=== PATIENT | male | born 1965 | race Caucasian/White ===

== ENCOUNTER 2019-11-01 17:13 | Emergency (ER) | payer OTHER ==
[~2019-11-01] VITALS: Ht 177 cm; Wt 63.0 kg
[~2019-11-01 17:13] MED LIST: IBUP-15 PO
[2019-11-01 17:15] VITALS: BP 150/96
--- NOTE | 2019-11-01 17:32 | ED EENT ---
History of Present Illness General Chief Complaint: Foreign Body Stated Complaint: POSS SPIDER IN R EAR Source: patient Exam Limitations: no limitations History of Present Illness Date Seen by Provider: Nov 01, 2019 Time Seen by Provider: 17:15 Initial Comments Patient resents ER by private conveyance with chief complaint about 1520 minutes prior to arrival he was cleaning out an old she had knee felt a spider or some small bug crawled in his right ear. He flushed it out with water. He says he feels a sensation still once in a while of movement in there. He was using his finger today get it. He has used Q-tips in the past but none today. No discharge from the ear no bleeding. Allergies and Home Medications Allergies Coded Allergies: No Known Drug Allergies (Unverified , 04/01/13) Home Medications Ibuprofen 200 Mg Tablet, 600 MG PO Q6H PRN for PAUL, (Reported) Patient Home Medication List Home Medication List Reviewed: Yes Review of Systems Review of Systems Constitutional: No chills, No diaphoresis Eyes: Denies Blindness, Denies Drainage Ears: See HPI; Denies Dizziness, Denies Pain Nose: denies clots, denies congestion Mouth: denies clots, denies loose teeth Respiratory: No cough, No short of breath All Other Systems Reviewed Negative Unless Noted: Yes Past Ghpyivg-Ihibkq-Azvfyl Hx Patient Social History Alcohol Use: Denies Use Recreational Drug Use: No Smoking Status: Never a Smoker Recent Foreign Travel: No Contact w/Someone Who Travel: No Past Medical History Reproductive Disorders: No Physical Exam Height, Weight, BMI Height: '" Weight: 230lbs. oz. [id number]; BMI Method: General Appearance: WD/WN, no apparent distress Eyes: bilateral eye normal inspection, bilateral eye PERRL, bilateral eye EOMI Ears: right ear erythema, right ear tenderness (canal with a small area of erythema and abrasion just at the 5:00 position of the tympanic membrane along the canal but not involving the TM.); left ear canal normal; bilateral ear auricle normal, bilateral ear TM dull (mild retractions without erythema, inject ion or perforation.) Nose: normal inspection; No active bleeding, No discharge Mouth/Throat: normal mouth inspection, pharynx normal; No dental tenderness Cardiovascular: normal peripheral pulses, regular rate, rhythm Respiratory: no respiratory distress, no accessory muscle use Neurologic/Psychiatric: alert, normal mood/affect, oriented x 3 Progress/Results/Core Measures Progress Progress Note : Time: 17:20 Progress Note Not sure if he had an insect or foreign body of some sort in his ear are not but there does not appear to be anything now. There is a small amount of minor josiah sharron/trauma along the 5:00 position of the canal just at the base of the tympanic membrane which could've been caused by an insect. Doubtful he would've got his index finger that deep into his ear canal. Plan to put him on antibiotic drops to prevent soft tissue infection. We'll encourage him to use antihistamines for the sensation of itching/movement. He does have some serous otitis media mild. Departure Impression Primary Impression: Foreign body in ear Qualified Codes: T16.1XXA - Foreign body in right ear, initial encounter Additional Impression: Abrasion of right ear canal Qualified Codes: S00.411A - Abrasion of right ear, initial encounter Disposition: HOME, SELF-CARE Condition: Stable Departure-Patient Inst. Decision time for Depature: 17:30 Referrals: CIARRA BERNARDO DO (PCP) Primary Care Physician GARRET JAMES APRN (Family) Primary Care Physician Patient Instructions: Removing Objects Stuck in the Ear Add. Discharge Instructions: Zyrtec/cetirizine or Claritin/loratadine 10 mg daily to reduce the sensation of movement and itching sensation in your ear. Ciprodex 4 drops in the affected ear twice a day for the next week to prevent infection. If you have worsening pain discharge fever or other worrisome symptoms then please return to the doctor. Tylenol 1000 mg every 8 hours as necessary for pain. Ibuprofen 800 mg every 8 hours as necessary for pain. All discharge instructions reviewed with patient and/or family. Voiced understanding. Scripts Ciprofloxacin HCl/Dexameth (Ciprodex Otic Suspension) 7.5 Ml Soln 4 DROPS OT BID for 7 Days, #7.5 EA 0 Refills Prov: CIERA METZGER 11/01/19 CIERA METZGER Nov 01, 2019 17:31
--- OUTSIDE RECORDS SUMMARY | 2019-11-01 17:32 | XMS REPORT ---
Author Author [facility] [employer] [facility] Address [address] [place] [address] Care Team Providers Care [facility] Representative Name Role Phone Unavailable Unavailable Allergies No Information Medications No Information Problems Problem Normalized Date Last Normalized Normalized Provider Fa cility Classification Problem(s) Recorded Problem Problem Sta tus Duration Nonspecific Chest pain, Episodic Active BASHAR FLORI , Not Available chest pain (1 unspecified MD (86548) source.) NEGATED Family history Episodic Active BASHAR FLORI , No t Available no of ischemic MD (83285) information (2 heart disease sources.) and other diseases of the circulatory system Translations: [ FAMILY HX-GI MALIGNANCY] Hemorrhoids (1 Internal Episodic Active TAKAAKI KIDO , Not Available source.) hemorrhoids (36168) without mention of complication Translations: [ EXT HEMORRHOID W/O COMPL] Other Obesity, Chronic Active BASHAR FLORI , Not Avai lable nutritional; unspecified MD (32546) endocrine; and metabolic disorders (1 source.) Other lower Shortness of Episodic Active BASHAR FLORI , No t Available respiratory breath (80021) disease (1 source.) Procedures No Information Immunizations No Information Results No Information Vital Signs No Information Interventions No Information Plan of Treatment No Information Goals No Information Social History No Information Functional Status No Information Mental Status No Information Encounters Encounter Normalized Encounter Encounter Diagnosis Care Provi primo Organization Date Type 12-28-2015 Patient encounter no information no name no or ganization name 04-01-2013 Patient encounter no information no name no or ganization name - 04-01-2013 Medical Equipment No Information Payers No Information Additional Source Comments This clinical document has been generated using [employer] software that has been certified by the Office of the National Coordinator for Health Information Technology (ONC 15.99.04.3023.Diam.[id number]) and the National Committee for Social Service Worker (NCQA, as an eMeasure certified technology). FOR RECORDS PERTAINING TO PATIENTS WHO ARE OR HAVE BEEN ENROLLED IN A CHEMICAL D EPENDENCY/SUBSTANCE ABUSE PROGRAM, SOME INFORMATION MAY BE OMITTED. This clinica l summary was aggregated from multiple sources. Caution should be exercised in using it in the provision of clinical care. This summary normalizes information from multiple sources, and as a consequence, information in this document may ma terially change the coding, format and clinical context of patient data. In heath tion, data may be omitted in some cases. CLINICAL DECISIONS SHOULD BE BASED ON T HE PRIMARY CLINICAL RECORDS. [facility]. provides no warranty or guara ntee of the accuracy or completeness of information in this document.The followi information is based on time limited clinical information
--- OUTSIDE RECORDS SUMMARY | 2019-11-01 17:32 | XMS REPORT | Continuity of Care Document ---
Author Organization Unknown Address Unknown Phone Unavailable Allergies Active Description Code Type Severity Reaction Onset Reported/Identified Relationship to Patient Clinical Status Yes No Known Drug Allergies [id number] Drug Allergy Unknown N/A 04/01/2013 Medications There is no data. Problems Date Dx Coded Attending Type Code Diagnosis Diagnosed By 04/01/2013 LENORE AREVALO MD Ot 455.0 INT HEMORRHOID W/O COMPL 04/01/2013 LENORE AREVALO MD Ot 455.3 EXT HEMORRHOID W/O COMPL 04/01/2013 LENORE AREVALO MD Ot V16.0 FAMILY HX-GI MALIGNANCY 12/29/2015 RADHA RUBY MD Ot E66. 9 OBESITY, UNSPECIFIED 12/29/2015 RADHA RUBY MD Ot R06. 02 SHORTNESS OF BREATH 12/29/2015 RADHA RUBY MD Ot R07. 9 CHEST PAIN, UNSPECIFIED 12/29/2015 RADHA RUBY MD Ot Z82. 49 FAMILY HX OF ISCHEM HEART DIS AND OTH DI 01/27/2016 RADHA RUBY MD Ot E66. 9 OBESITY, UNSPECIFIED 01/27/2016 RADHA RUBY MD Ot R06. 02 SHORTNESS OF BREATH 01/27/2016 RADHA RUBY MD Ot R07. 9 CHEST PAIN, UNSPECIFIED 01/27/2016 RADHA RUBY MD Ot Z82. 49 FAMILY HX OF ISCHEM HEART DIS AND OTH DI 03/07/2016 RADHA RUBY MD Ot E66. 9 OBESITY, UNSPECIFIED 03/07/2016 RADHA URBY MD Ot R06. 02 SHORTNESS OF BREATH 03/07/2016 RADHA RUBY MD Ot R07. 9 CHEST PAIN, UNSPECIFIED 03/07/2016 RADHA RUBY MD Ot Z82. 49 FAMILY HX OF ISCHEM HEART DIS AND OTH DI 08/07/2016 RADHA RUBY MD Ot E66. 9 OBESITY, UNSPECIFIED 08/07/2016 RADHA RUBY MD Ot R06. 02 SHORTNESS OF BREATH 08/07/2016 RADHA RUBY MD Ot R07. 9 CHEST PAIN, UNSPECIFIED 08/07/2016 RADHA RUBY MD Ot Z82. 49 FAMILY HX OF ISCHEM HEART DIS AND OTH DI 08/16/2016 RADHA RUBY MD Ot E66. 9 OBESITY, UNSPECIFIED 08/16/2016 RADHA RUBY MD Ot R06. 02 SHORTNESS OF BREATH 08/16/2016 RADHA RUBY MD Ot R07. 9 CHEST PAIN, UNSPECIFIED 08/16/2016 RADHA RUBY MD Ot Z82. 49 FAMILY HX OF ISCHEM HEART DIS AND OTH DI 10/11/2016 RADHA RUBY MD Ot E66. 9 OBESITY, UNSPECIFIED 10/11/2016 RADHA RUBY MD Ot R06. 02 SHORTNESS OF BREATH 10/11/2016 RADHA RUBY MD Ot R07. 9 CHEST PAIN, UNSPECIFIED 10/11/2016 RADHA RUBY MD Ot Z82. 49 FAMILY HX OF ISCHEM HEART DIS AND OTH DI 02/21/2018 RADHA RUBY MD Ot E66. 9 OBESITY, UNSPECIFIED 02/21/2018 RADHA RUBY MD Ot R06. 02 SHORTNESS OF BREATH 02/21/2018 RADHA RUBY MD Ot R07. 9 CHEST PAIN, UNSPECIFIED 02/21/2018 RADHA RUBY MD Ot Z82. 49 FAMILY HX OF ISCHEM HEART DIS AND OTH DI Procedures There is no data. Results There is no data. Encounters ACCT No. Visit Date/Time Discharge Status Pt. Type Provider Facility Loc./Unit Complaint [id number] 12/28/2015 07:28:00 016 23:59:59 CLS Outpatient RADHA RUBY MD [facility] CARD CHEST PAIN SYNDROME,SOB ,OBESITY [id number] 04/01/2013 08:28:00 11:55:00 DIS Outpatient LENORE AREVALO MD [facility] BLOOD IN STOOL [id number] 03/25/2013 08:16:00 23:59:59 CLS Outpatient
[2019-11-01] MEDS ORDERED: NF-CIPDEC OT ×2 (17:36→17:38)
== END 2019-11-01 17:38 | disposition home or self-care (01) ==
LOC: EDUNIT# 17:13 → ER 17:14
DX: S00.411A Abrasion of right ear, initial encounter (principal); T16.1XXA Foreign body in right ear, initial encounter
CPT/HCPCS: 99282